=== PATIENT | male | born 1970 | race Asian ===

== ENCOUNTER 2020-04-11 21:52 | Emergency (ER) | payer BC, OTHER ==
--- NOTE | 2020-04-11 22:11 | RAD ---
Exam: Chest one view HISTORY:Chest pain. Right-sided pain. Comparison: None FINDINGS: Cardiac silhouette: Normal Aorta: Atherosclerotic Pulmonary vessels: Normal Costophrenic angles: Clear LUNGS: No masses or consolidation. Pneumothorax: None Osseous abnormalities: None IMPRESSION: No acute cardiopulmonary process. Atherosclerosis.
[2020-04-11 22:32] LABS: #Basophils 0.1 thou/uL (0.0-0.2); #Eosinphils 0.2 thou/uL (0.0-0.7); #Lymphocytes 2.5 thou/uL (1.20-3.40); #Monocytes 0.4 thou/uL (0.11-0.59); #Neutrophils 3.7 thou/uL (1.40-6.50); %Basophils 1.4 % (0.0-1.0); %Lymphocytes 35.6 % (21.0-51.0); %Monocytes 5.8 % (0.0-10.0); %Neutrophils 54.3 % (42.0-75.0); Hemoglobin 15.7 g/dL (14.0-18.0); Mean Corpuscular HGB CONC 33.6 g/dL (32.0-36.0); Mean Corpuscular Hemoglobin 30.1 pg (27.0-31.0); Mean Corpuscular Volume 89.6 fL (78.0-98.0); Mean Platelet Volume 9.3 fL (7.4-10.4); Platelet Count 171 thou/uL (130-400); RBC Distribution Width 11.1 % (11.5-14.5); Red Blood Cell (RBC) Count 5.21 mill/uL (4.70-6.10); White Blood Cell (WBC) Count 6.9 thou/uL (4.8-10.8)
[2020-04-11 22:49] LABS: ALT (SGPT) 31 U/L (8-55); AST (SGOT) 22 U/L (5-34); Albumin 4.4 g/dL (3.5-5.0); Alkaline Phosphatase 59 U/L (40-110); Anion Gap 12 mmol/L (10-20); BUN (Urea Nitrogen) 18 mg/dL (8.9-20.6); Bilirubin, Total 0.3 mg/dL (0.2-1.2); Calc. Creatinine Clearance 0 mL/min (70-130); Calcium 9.3 mg/dL (7.8-10.44); Carbon Dioxide 28 mmol/L (22-29); Chloride 103 mmol/L (98-107); Globulin 3.3 g/dL (2.4-3.5); Glucose 192 mg/dL (70-105); Potassium 3.9 mmol/L (3.5-5.1); Protein, Total 7.7 g/dL (6.0-8.3); Sodium 139 mmol/L (136-145)
--- NOTE | 2020-04-11 23:30 | CT ---
Exam: Head CT without contrast HISTORY: Memory loss. Speech difficulty. Vision changes. COMPARISON: none FINDINGS: Hemorrhage: No intraparenchymal hemorrhage or extra-axial hematoma. Brain parenchyma: Cortical hendricks-white matter differentiation is preserved. No mass effect or midline shift. Basilar cisterns are patent. Ventricular system: Ventricles and sulci are patent and symmetric. Calvarium: Intact. Sinuses and mastoid air cells: Adequate aeration. IMPRESSION: No acute intracranial process.
[2020-04-12] MEDS ORDERED: Aspirin 325 MG TAB ONE (00:01)
--- NOTE | 2020-04-26 16:42 | EKG ---
Test Reason : Blood Pressure : / mmHG Vent. Rate : 064 BPM Atrial Rate : 064 BPM P-R Int : 128 ms QRS Dur : 088 ms QT Int : 384 ms P-R-T Axes : 065 -01 020 degrees QTc Int : 396 ms Normal sinus rhythm Nonspecific T wave abnormality Abnormal ECG Confirmed by LINA BARRAGAN ([id number]), editor managing newspaper AMRIT GREGG ([id number]) on 04/26/2020 4:42:38 PM Referred By: Confirmed By:LINA Kessler
== END 2020-04-12 03:55 | disposition home or self-care (01) ==
LOC: ERS 21:52
DX: R07.9 Chest pain, unspecified (principal)
CPT/HCPCS: 36415; 70450; 71045; 80053; 84484; 85025; 93005